=== PATIENT | female | born 1955 | race American Indian/Alaskan Native ===

== ENCOUNTER 2019-11-02 15:43 | Inpatient (IN) | payer MEDICAID ==
--- NOTE | 2019-11-02 18:41 | Emergency Department Report ---
Blank Doc - Documentation Documentation: 64-year-old female that presents with lower abdominal pain. This initial assessment/diagnostic orders/clinical plan/treatment(s) is/are subject to change based on patient's health status, clinical progression and re- assessment by fellow clinical providers in the ED. Further treatment and workup at subsequent clinical providers discretion. Patient/guardians urged not to elope from the ED as their condition may be serious if not clinically assessed and managed. Initial orders include: 1- Patient sent to [facility] for further evaluation and treatment 2- labs 3- UA
[2019-11-02 19:08] LABS: Basophils # (Auto) 0.1 K/mm3 (0.0-0.1); Basophils % (Auto) 1.1 % (0.0-1.8); Eosinophils # (Auto) 0.1 K/mm3 (0.0-0.4); Eosinophils % (Auto) 1.2 % (0.0-4.3); Hematocrit 35.4 % (30.3-42.9); Hemoglobin 11.5 gm/dl (10.1-14.3); Lymphocytes # (Auto) 1.4 K/mm3 (1.2-5.4); Lymphocytes % (Auto) 23.7 % (13.4-35.0); Mean Corpuscular HGB Conc 32 % (30-34); Mean Corpuscular Volume 87 fl (79-97); Monocytes # (Auto) 0.6 K/mm3 (0.0-0.8); Monocytes % (Auto) 10.4 % (0.0-7.3); Platelet Count 204 K/mm3 (140-440); Red Blood Count 4.05 M/mm3 (3.65-5.03); Red Cell Distribution Width 14.4 % (13.2-15.2)
[2019-11-02 19:35] LABS: Alanine Aminotransferase 23 units/L (7-56); Albumin 4.1 g/dL (3.9-5); BUN/Creatinine Ratio 17; Blood Urea Nitrogen 12 mg/dL (7-17); Calcium 9.4 mg/dL (8.4-10.2); Hemolysis Index 4
[2019-11-02] MEDS ORDERED: ONDANSETRON 4 MG/2 ML INJ IV ONE (21:55)
[2019-11-02] MEDS ORDERED: SODIUM CHLORIDE 0.9% 1000 ML 1,000 ML IV ONE (21:55)
[2019-11-02] MEDS ORDERED: DICYCLOMINE 20 MG TAB PO ONE (21:55)
[2019-11-02 23:31] LABS: Bilirubin,Urine NEG (Negative); Blood,Urine NEG (Negative); Color,Urine Yellow (Yellow); Protein,Urine <15 mg/dL mg/dL (Negative); Urobilinogen,Urine < 2.0 mg/dL (<2.0)
--- NOTE | 2019-11-02 23:54 | Cat Scan Report ---
CT OF THE ABDOMEN AND PELVIS WITH INTRAVENOUS CONTRAST INDICATION / CLINICAL INFORMATION: Diffuse lower abdominal pain. TECHNIQUE: The patient received 100 cc Omnipaque [address] scans at this location are performed using CT dose reduction for ALARA by means of automated exposure control. COMPARISON: None available. FINDINGS: ABDOMEN: There is a benign-appearing 6 cm cystic mass in the inferior spleen with thick peripheral wa ll calcification. The findings are likely related to old trauma. There is mild to moderate diffuse mark wel wall thickening involving the right and transverse colon. I see no evidence of pneumatosis, free air or obstruction. No acute vascular abnormality is seen. There are a couple of calcified granulomata in the right lobe of the liver. The gallbladder, bile piyush ts, pancreas, adrenal glands, and demonstrate no significant abnormality. No adenopathy is seen. The lung bases are unremarkable. PELVIS: The distal ureters and urinary bladder are normal. There is a small amount of free fluid in t he cul-de-sac, greater on the right. The uterus and adnexal regions are normal. A normal appendix is present and there is no evidence of diverticulitis. I do not identify a hernia. No acute osseous abno rmality is seen. IMPRESSION: 1. Moderate colitis involving the right and transverse colon. 2. 6 cm benign-appearing peripherally calcified cyst in the spleen. Signer Name: Driss Kumar MD Signed: 11/02/2019 11:50 PM Workstation Name: [id number]
[2019-11-03] MEDS ORDERED: metroNIDAZOLE/NS 500 MG/100 ML 500 MG/100 ML BAG IV ONE (00:08)
[2019-11-03] MEDS ORDERED: ONDANSETRON 4 MG/2 ML INJ IV ONE (00:08)
[2019-11-03] MEDS ORDERED: MORPHINE 4 MG/1 ML INJ IV ONE (00:08)
--- NOTE | 2019-11-03 01:12 | Emergency Department Report ---
ED Abdominal Pain HPI - General Chief Complaint: Abdominal Pain Stated Complaint: STOMACH PAIN Time Seen by Provider: 11/02/19 18:40 Source: patient, EMS Mode of arrival: Ambulatory Limitations: No Limitations - History of Present Illness Initial Comments: Patient is a 64-year-old -Faro[place] female with history of hypertension who presents to the ED recombinant of acute onset persistent severe diffuse lower abdominal pain with nausea and diarrhea for the last 2 days, worse in the last 12. Patient denies dysuria, urinary frequency and urgency, hematuria, vaginal bleeding, vaginal discharge, dizziness, chest pain, shortness of breath, fever and chills. MD Complaint: abdominal pain, other (nausea and diarrhea) -: Sudden, days(s) (2) Location: LLQ, RLQ, suprapubic Radiation: LLQ, RLQ, suprapubic Migration to: no migration Severity: severe Severity scale (0 -10): 8 Quality: cramping, aching, sharp Consistency: constant Improves With: nothing Worsens With: nothing Associated Symptoms: denies other symptoms, nausea, diarrhea, anorexia. denies: vomiting, fever, chills, constipation, hematemesis, hematochezia, melena - Related Data Allergies Allergy/AdvReac Type Severity Reaction Status Date / Time aspirin Allergy Anaphylaxis Verified 11/02/19 15:47 ED Review of Systems ROS: Stated complaint: STOMACH PAIN Other details as noted in HPI Constitutional: denies: chills, fever Eyes: denies: eye pain, eye discharge, vision change ENT: denies: ear pain, throat pain Respiratory: denies: cough, shortness of breath, wheezing Cardiovascular: denies: chest pain, palpitations Endocrine: no symptoms reported Gastrointestinal: abdominal pain, nausea, diarrhea Genitourinary: denies: urgency, dysuria, discharge Musculoskeletal: denies: back pain, joint swelling, arthralgia Skin: denies: rash, lesions Neurological: denies: headache, weakness, paresthesias Psychiatric: denies: anxiety, depression Hematological/Lymphatic: denies: easy bleeding, easy bruising ED Past Medical Hx - Past Medical History Previous Medical History?: Yes Hx Hypertension: Yes Hx Asthma: Yes - Surgical History Past Surgical History?: No - Social History Smoking Status: Never Smoker Substance Use Type: None ED Physical Exam - General Limitations: No Limitations General appearance: alert, in no apparent distress - Head Head exam: Present: atraumatic, normocephalic, normal inspection - Eye Eye exam: Present: normal appearance, PERRL, EOMI Pupils: Present: normal accommodation - ENT ENT exam: Present: normal exam, normal orophraynx, mucous membranes moist, TM's normal bilaterally, normal external ear exam - Neck Neck exam: Present: normal inspection, full ROM - Respiratory Respiratory exam: Present: normal lung sounds bilaterally. Absent: respiratory distress, wheezes, rales, stridor, chest wall tenderness, accessory muscle use, decreased breath sounds, prolonged expiratory - Cardiovascular Cardiovascular Exam: Present: normal rhythm, tachycardia, normal heart sounds. Absent: systolic murmur, diastolic murmur, rubs, gallop - GI/Abdominal GI/Abdominal exam: Present: soft, tenderness (diffuse lower abdominal tenderness to palpation, regarding), guarding, normal bowel sounds. Absent: rebound, hyperactive bowel sounds - Extremities Exam Extremities exam: Present: normal inspection, full ROM, normal capillary refill - Back Exam Back exam: Present: normal inspection, full ROM. Absent: tenderness, CVA tenderness (R), CVA tenderness (L), muscle spasm, vertebral tenderness - Neurological Exam Neurological exam: Present: alert, oriented X3, CN II-XII intact, normal gait, reflexes normal - Psychiatric Psychiatric exam: Present: normal affect, normal mood - Skin Skin exam: Present: warm, dry, intact, normal color. Absent: rash ED Course Vital Signs 11/02/19 11/03/19 18:44 00:24 Temperature 98.4 F Pulse Rate 107 H Respiratory 18 18 Rate Blood Pressure 185/93 O2 Sat by Pulse 100 Oximetry ED Medical Decision Making - Lab Data Result diagrams: 11/02/19 18:53 11/02/19 18:53 - Radiology Data Radiology results: report reviewed, image reviewed Findings [facility] [address] [place] [address] Cat Scan Report Signed Patient: ANGELIA MARTINEZ MR#: [id number] : 1955 Acct:[id number] Age/Sex: 64 / F ADM Date: 11/02/19 Loc: ED Attending Dr: Ordering Physician: NUNU KOENIG Date of Service: 11/02/19 Procedure(s): CT abdomen pelvis w con Accession Number(s): [id number] cc: NUNU KOENIG CT OF THE ABDOMEN AND PELVIS WITH INTRAVENOUS CONTRAST INDICATION / CLINICAL INFORMATION: Diffuse lower abdominal pain. TECHNIQUE: The patient received 100 cc Omnipaque [address] scans at this location are performed using CT dose reduction for ALARA by means of automated exposure control. COMPARISON: None available. FINDINGS: ABDOMEN: There is a benign-appearing 6 cm cystic mass in the inferior spleen with thick peripheral wall calcification. The findings are likely related to old trauma. There is mild to moderate diffuse bowel wall thickening involving the right and transverse colon. I see no evidence of pneumatosis, free air or obstruction. No acute vascular abnormality is seen. There are a couple of calcified granulomata in the right lobe of the liver. The gallbladder, bile ducts, pancreas, adrenal glands, and demonstrate no significant abnormality. No adenopathy is seen. The lung bases are unremarkable. PELVIS: The distal ureters and urinary bladder are normal. There is a small amount of free fluid in the cul-de-sac, greater on the right. The uterus and adnexal regions are normal. A normal appendix is present and there is no evidence of diverticulitis. I do not identify a hernia. No acute osseous abnormality is seen. IMPRESSION: 1. Moderate colitis involving the right and transverse colon. 2. 6 cm benign-appearing peripherally calcified cyst in the spleen. Signer Name: Driss Kumar MD Signed: 11/02/2019 11:50 PM Workstation Name: [id number] Transcribed By: RT Dictated By: Driss Kumar MD Electronically Authenticated By: Driss Kumar MD Signed Date/Time: 11/02/19 5290 - Medical Decision Making This is a 64-year-old female who presented to the ED with diffuse lower abdominal pain with nausea and diarrhea. In the ED, patient is alert and oriented 3 and is not in distress but appears to be in pain. Patient is however tachycardic but afebrile in triage. Lab test results were reviewed and all nonactionable except for lipase level that is slightly elevated to 65. Urinalysis is nonactionable. Abdomen pelvis CT scan with contrast shows Moderate colitis involving the right and transverse colon. There is also a 6 cm benign-appearing peripherally calcified cyst in the spleen. The rest of imaging report is unremarkable. Patient was treated for pain in the ED, also received normal saline 1 L IV bolus and Flagyl 5 mg IV 1. Patient also received Levaquin 500 milligrams IV 1. Patient's case was discussed with the ED attending physician Dr. Otis Granados who agreed with the plan of care to admit the patient to the hospital for further antibiotic treatment. The patient's case was also discussed with hospitalist physician pricing consultant Dr. Espinosa who admitted patient to the hospital. - Differential Diagnosis UTI; Colitis; Diverticulitis; Cystitis; Fibroids; appendicitis Critical care attestation.: If time is entered above; I have spent that time in minutes in the direct care of this critically ill patient, excluding procedure time. ED Disposition Clinical Impression: Abdominal pain in female patient, Acute colitis Disposition: OP ADMIT IP TO THIS HOSP Is pt being admited?: Yes Does the pt Need Aspirin: No Condition: Stable Instructions: Abdominal Pain (ED) Referrals: GIN JANSEN MD [Primary Care Provider] - 3-5 Days Time of Disposition: 01:13 Print Language: LIBERIAN
--- NOTE | 2019-11-03 01:21 | History and Physical Report ---
History of Present Illness History of present illness: 64-year-old woman with a history of chronic pain, asthma comes emergency room with complaints of abdominal pain located in the left lower abdomen. He describes it as pressure, started today, intensity 6/10, radiating to the back, relieved with pain medication given in the emergency room. Admits to nausea, chills, no diarrhea Review Of Systems: Constitutional: no weight loss, chills, fever Ears, eyes, nose, mouth and throat: no nasal congestion, no nasal discharge, no sinus pressure, blurry vision, diplopia Neck: No neck pain or rigidity. Cardiovascular: No palpitations, chest pain Respiratory: No cough, shortness of breath Gastrointestinal: No hematochezia Genitourinary : no dysuria, frequency , hematuria Musculoskeletal: no muscle ache , joint pain Integumentary: no rash, no pruritis Neurological: no parathesias, focal weakness Endocrine: no cold or heat intolerance, no polyuria or polydipsia Hematologic/Lymphatic: no easy bruising, no easy bleeding, no gland swelling Allergic/Immunologic: no urticaria, no angioedema. PAST MEDICAL HISTORY: Chronic pain, asthma PAST SURGICAL HISTORY:None SOCIAL HISTORY: No alcohol, no tobacco or drugs FAMILY HISTORY: hypertension Medications and Allergies Allergies Allergy/AdvReac Type Severity Reaction Status Date / Time aspirin Allergy Anaphylaxis Verified 11/02/19 15:47 Home Medications Medication Instructions Recorded Confirmed Last Taken Type Budesonide/Formoterol Fumarate 10.2 gm IH BID 11/03/19 11/03/19 Unknown History [Symbicort 160-4.5 Mcg Inhaler] Furosemide [Lasix TAB] 40 mg PO QDAY 11/03/19 11/03/19 Unknown History Gabapentin [Neurontin] 300 mg PO Q8HR 11/03/19 11/03/19 Unknown History Ketotifen Fumarate [Alaway] 10 ml OP BID 11/03/19 11/03/19 Unknown History Nortriptyline [Pamelor] 25 mg PO QHS 11/03/19 11/03/19 Unknown History Verapamil ER [Calan Sr] 240 mg PO QDAY 11/03/19 11/03/19 Unknown History lisinopriL [Zestril TAB] 40 mg PO QDAY 11/03/19 11/03/19 Unknown History risperiDONE [RisperDAL] 2 mg PO QHS 11/03/19 11/03/19 Unknown History Exam - Physical Exam Narrative exam: Gen. appearance: Patient lying in bed, no apparent distress HEENT: Normocephalic, atraumatic, pupils equally round and reactive to light, extraocular movement intact, and no sclericterus,. No JVD or thyromegaly or nodule,neck supple, no carotid bruit ,mucous membranes moist, no exudate or erythema Heart: S1, S2, regular rate and rhythm Lungs: Clear to auscultation bilaterally, breathing comfortable Abdomen: Positive bowel sounds, tender in left lower quadrant, nondistended, no organomegaly Extremity: No edema, cyanosis, clubbing Skin: No rash, nodules, warm, dry Neuro: Oriented 3, cranial nerves II-12 intact, speech is fluent, motor and sensory intact - Constitutional Vitals: Temp Pulse Resp BP Pulse Ox 98.4 F 107 H 18 185/93 100 11/02/19 18:44 11/02/19 18:44 11/03/19 00:24 11/02/19 18:44 11/02/19 18:44 Results - Labs CBC & Chem 7: 11/02/19 18:53 11/02/19 18:53 Labs: Abnormal lab results 11/02/19 11/02/19 Range/Units 18:53 22:00 [place] % (Auto) 10.4 H (0.0-7.3) % Lipase 65 H (13-60) units/L - Imaging and Cardiology CT scan - abdomen: report reviewed CT scan - pelvis: report reviewed Assessment and Plan Assessment Acute colitis Start IV fluid, bowel rest, Levaquin and Flagyl Consult GI, IV morphine Asthma, stable DVT prophylaxis
[2019-11-03] MEDS ORDERED: ACETAMINOPHEN 325 MG TAB PO PRN (01:26)
[2019-11-03] MEDS ORDERED: MORPHINE 2 MG/1 ML INJ IV PRN (01:26)
[2019-11-03] MEDS ORDERED: ONDANSETRON 4 MG/2 ML INJ IV PRN (01:26)
[2019-11-03] MEDS: metroNIDAZOLE 500 MG TAB PO SCH ×3 (05:29→21:53)
[2019-11-03] MEDS: SODIUM CHLORIDE 0.45% 1000 ML 1,000 ML IV SCH ×2 (05:30→16:57)
--- NOTE | 2019-11-03 11:02 | Gastroenterology Consultation ---
<DERIC BORJA - Last Filed: 11/03/19 11:04> History of Present Illness - Reason for Consult Consult date: 11/03/19 colitis Requesting physician: JOSY ROJO - History of Present Illness Patient is a 64 y/o female with PMH of HTN, asthma, and chronic pain who presented to ED with c/o acute onset diffuse lower abdominal pain with associ ated nausea and diarrhea. Upon admission, abd CT showed colitis to which GI has been consulted. This morning patient was resting in bed w/o acute distress. Reports continue mild lower abdominal pain and diarrhea x 2 episodes this am with non-bloody liquid stool. Denies fever, CP, SOB, vomiting, wt loss, signs of bleeding, or constipation. Admits to recently completing antibiotics for sinus infection and eating lunch meat from [employer] prior to onset of symptoms. No recent travel or ill contacts. No hx of IBD. No Fhx of colon CA. No prior colonoscopy. Past History Past Medical History: other (see HPI) Past Surgical History: No surgical history Social history: denies: smoking, alcohol abuse Family history: hypertension Medications and Allergies Allergies Allergy/AdvReac Type Severity Reaction Status Date / Time aspirin Allergy Anaphylaxis Verified 11/02/19 15:47 Home Medications Medication Instructions Recorded Confirmed Last Taken Type Budesonide/Formoterol Fumarate 10.2 gm IH BID 11/03/19 11/03/19 Unknown History [Symbicort 160-4.5 Mcg Inhaler] Furosemide [Lasix TAB] 40 mg PO QDAY 11/03/19 11/03/19 Unknown History Gabapentin [Neurontin] 300 mg PO Q8HR 11/03/19 11/03/19 Unknown History Ketotifen Fumarate [Alaway] 10 ml OP BID 11/03/19 11/03/19 Unknown History Nortriptyline [Pamelor] 25 mg PO QHS 11/03/19 11/03/19 Unknown History Verapamil ER [Calan Sr] 240 mg PO QDAY 11/03/19 11/03/19 Unknown History lisinopriL [Zestril TAB] 40 mg PO QDAY 11/03/19 11/03/19 Unknown History risperiDONE [RisperDAL] 2 mg PO QHS 11/03/19 11/03/19 Unknown History Active Meds: Active Medications Acetaminophen (Tylenol) 650 mg PO Q4H PRN PRN Reason: Pain MILD(1-3)/Fever >100.5/CARBAJAL Sodium Chloride (Nacl 0.45% 1000 Ml) 1,000 mls @ 100 mls/hr IV DIRECT [facility] Last Admin: 11/03/19 05:30 Dose: 100 mls/hr Documented by: Levofloxacin/Dextrose (Levaquin 500mg/100ml) 500 mg in 100 mls @ 100 mls/hr IV Q24HR [facility]; Protocol Last Admin: 11/03/19 10:18 Dose: 100 mls/hr Documented by: Metronidazole (Flagyl) 500 mg PO Q8H [facility]; Protocol Last Admin: 11/03/19 05:29 Dose: 500 mg Documented by: Morphine Sulfate (Morphine) 2 mg IV Q4H PRN PRN Reason: Pain, Moderate (4-6) Ondansetron HCl (Zofran) 4 mg IV Q8H PRN PRN Reason: Nausea And Vomiting Sodium Chloride (Sodium Chloride Flush Syringe 10 Ml) 10 ml IV BID [facility] Last Admin: 11/03/19 10:19 Dose: Not Given Documented by: Sodium Chloride (Sodium Chloride Flush Syringe 10 Ml) 10 ml IV PRN PRN PRN Reason: LINE FLUSH medications reviewed/updated as required Review of Systems - Review of Systems All systems: negative Gastrointestinal: abdominal pain (diffuse lower abd pain), diarrhea Exam - Constitutional Vital Signs: Temp Pulse Resp BP Pulse Ox 98.4 F 81 18 135/67 98 11/02/19 18:44 11/03/19 02:40 11/03/19 03:32 11/03/19 03:32 11/03/19 04:46 General appearance: no acute distress - EENT Eyes: PERRL, EOM intact ENT: hearing intact - Respiratory Respiratory effort: normal - Cardiovascular Rhythm: regular - Gastrointestinal General gastrointestinal: Present: soft, tender (slight TTP in LLQ), non- distended, normal bowel sounds - Integumentary Integumentary: Present: warm, dry - Neurologic Neurological: alert and oriented x3 - Labs CBC & Chem 7: 11/02/19 18:53 11/02/19 18:53 Lab Results: Laboratory Results - last 24 hr 11/02/19 11/02/19 11/02/19 18:53 18:53 22:00 WBC 5.9 RBC 4.05 Hgb 11.5 Hct 35.4 MCV 87 MCH 28 MCHC 32 RDW 14.4 Plt Count 204 Lymph % (Auto) 23.7 [place] % (Auto) 10.4 H Eos % (Auto) 1.2 Baso % (Auto) 1.1 Lymph # 1.4 [place] # 0.6 Eos # 0.1 Baso # 0.1 Seg Neutrophils % 63.6 Seg Neutrophils # 3.7 Sodium 144 Potassium 3.7 Chloride 104.0 Carbon Dioxide 25 Anion Gap 19 BUN 12 Creatinine 0.7 Estimated GFR > 60 BUN/Creatinine Ratio 17 Glucose 89 Calcium 9.4 Total Bilirubin 0.40 AST 24 ALT 23 Alkaline Phosphatase 87 Total Protein 7.3 Albumin 4.1 Albumin/Globulin Ratio 1.3 Lipase 65 H Urine Color Urine Turbidity Urine pH Ur Specific [place] Urine Protein Urine Glucose (UA) Urine Ketones Urine Blood Urine Nitrite Urine Bilirubin Urine Urobilinogen Ur Leukocyte Esterase Urine WBC (Auto) Urine RBC (Auto) 11/02/19 22:38 WBC RBC Hgb Hct MCV MCH MCHC RDW Plt Count Lymph % (Auto) [place] % (Auto) Eos % (Auto) Baso % (Auto) Lymph # [place] # Eos # Baso # Seg Neutrophils % Seg Neutrophils # Sodium Potassium Chloride Carbon Dioxide Anion Gap BUN Creatinine Estimated GFR BUN/Creatinine Ratio Glucose Calcium Total Bilirubin AST ALT Alkaline Phosphatase Total Protein Albumin Albumin/Globulin Ratio Lipase Urine Color Yellow Urine Turbidity Clear Urine pH 7.0 Ur Specific [place] 1.006 Urine Protein <15 mg/dl Urine Glucose (UA) Neg Urine Ketones Neg Urine Blood Neg Urine Nitrite Neg Urine Bilirubin Neg Urine Urobilinogen < 2.0 Ur Leukocyte Esterase Tr Urine WBC (Auto) 1.0 Urine RBC (Auto) 2.0 Assessment and Plan 1.colitis -afebrile -WBC and H/H WNL -abd CT showed moderate colitis involving the right and transverse colon -etiology-possible infectious vs other -no plan for scope at this time, consider colonoscopy at outpatient once acute process has resolved -will order stool studies -continue empiric antibiotics (change to vanco if stool C-diff positive) -start on liquids-advance diet as tolerated -continue supportive care -will follow <BIJAN BRITO - Last Filed: 11/03/19 15:56> Medications and Allergies Active Meds: Active Medications Acetaminophen (Tylenol) 650 mg PO Q4H PRN PRN Reason: Pain MILD(1-3)/Fever >100.5/CARBAJAL Sodium Chloride (Nacl 0.45% 1000 Ml) 1,000 mls @ 100 mls/hr IV DIRECT [facility] Last Admin: 11/03/19 05:30 Dose: 100 mls/hr Documented by: Levofloxacin/Dextrose (Levaquin 500mg/100ml) 500 mg in 100 mls @ 100 mls/hr IV Q24HR [facility]; Protocol Last Admin: 11/03/19 10:18 Dose: 100 mls/hr Documented by: Metronidazole (Flagyl) 500 mg PO Q8H [facility]; Protocol Last Admin: 11/03/19 13:22 Dose: 500 mg Documented by: Morphine Sulfate (Morphine) 2 mg IV Q4H PRN PRN Reason: Pain, Moderate (4-6) Ondansetron HCl (Zofran) 4 mg IV Q8H PRN PRN Reason: Nausea And Vomiting Sodium Chloride (Sodium Chloride Flush Syringe 10 Ml) 10 ml IV BID [facility] Last Admin: 11/03/19 10:19 Dose: Not Given Documented by: Sodium Chloride (Sodium Chloride Flush Syringe 10 Ml) 10 ml IV PRN PRN PRN Reason: LINE FLUSH Exam - Constitutional Vital Signs: Temp Pulse Resp BP Pulse Ox 98.5 F 97 H 18 151/71 98 11/03/19 11:52 11/03/19 11:52 11/03/19 11:52 11/03/19 11:52 11/03/19 11:52 - Labs CBC & Chem 7: 11/02/19 18:53 11/02/19 18:53 Lab Results: Laboratory Results - last 24 hr 11/02/19 11/02/19 11/02/19 18:53 18:53 22:00 WBC 5.9 RBC 4.05 Hgb 11.5 Hct 35.4 MCV 87 MCH 28 MCHC 32 RDW 14.4 Plt Count 204 Lymph % (Auto) 23.7 [place] % (Auto) 10.4 H Eos % (Auto) 1.2 Baso % (Auto) 1.1 Lymph # 1.4 [place] # 0.6 Eos # 0.1 Baso # 0.1 Seg Neutrophils % 63.6 Seg Neutrophils # 3.7 Sodium 144 Potassium 3.7 Chloride 104.0 Carbon Dioxide 25 Anion Gap 19 BUN 12 Creatinine 0.7 Estimated GFR > 60 BUN/Creatinine Ratio 17 Glucose 89 Calcium 9.4 Total Bilirubin 0.40 AST 24 ALT 23 Alkaline Phosphatase 87 Total Protein 7.3 Albumin 4.1 Albumin/Globulin Ratio 1.3 Lipase 65 H Urine Color Urine Turbidity Urine pH Ur Specific [place] Urine Protein Urine Glucose (UA) Urine Ketones Urine Blood Urine Nitrite Urine Bilirubin Urine Urobilinogen Ur Leukocyte Esterase Urine WBC (Auto) Urine RBC (Auto) 11/02/19 22:38 WBC RBC Hgb Hct MCV MCH MCHC RDW Plt Count Lymph % (Auto) [place] % (Auto) Eos % (Auto) Baso % (Auto) Lymph # [place] # Eos # Baso # Seg Neutrophils % Seg Neutrophils # Sodium Potassium Chloride Carbon Dioxide Anion Gap BUN Creatinine Estimated GFR BUN/Creatinine Ratio Glucose Calcium Total Bilirubin AST ALT Alkaline Phosphatase Total Protein Albumin Albumin/Globulin Ratio Lipase Urine Color Yellow Urine Turbidity Clear Urine pH 7.0 Ur Specific [place] 1.006 Urine Protein <15 mg/dl Urine Glucose (UA) Neg Urine Ketones Neg Urine Blood Neg Urine Nitrite Neg Urine Bilirubin Neg Urine Urobilinogen < 2.0 Ur Leukocyte Esterase Tr Urine WBC (Auto) 1.0 Urine RBC (Auto) 2.0 Assessment and Plan Pt seen and examined. Pt had what appears to be infectious colitis, and seems to be improving. Plan as noted.
--- NOTE | 2019-11-03 15:56 | Event Note ---
Date: 11/03/19 Patient was admitted this morning with acute colitis On IV antibiotics GI evaluation noted and appreciated Medical records reviewed Agree with the current management Advance diet as tolerated Possible discharge in 1-2 days if stable
--- NOTE | 2019-11-03 19:54 | Progress Note ---
Hospitalist Physical - Constitutional Vitals: Temp Pulse Resp BP Pulse Ox 98.6 F 85 18 135/71 97 11/03/19 16:39 11/03/19 16:39 11/03/19 16:39 11/03/19 16:39 11/03/19 16:39 Results - Labs CBC & Chem 7: 11/02/19 18:53 11/02/19 18:53 Labs: Laboratory Last Values WBC 5.9 K/mm3 (4.5-11.0) 11/02/19 18:53 RBC 4.05 M/mm3 (3.65-5.03) 11/02/19 18:53 Hgb 11.5 gm/dl (10.1-14.3) 11/02/19 18:53 Hct 35.4 % (30.3-42.9) 11/02/19 18:53 MCV 87 fl (79-97) 11/02/19 18:53 MCH 28 pg (28-32) 11/02/19 18:53 MCHC 32 % (30-34) 11/02/19 18:53 RDW 14.4 % (13.2-15.2) 11/02/19 18:53 Plt Count 204 K/mm3 (140-440) 11/02/19 18:53 Lymph % (Auto) 23.7 % (13.4-35.0) 11/02/19 18:53 [place] % (Auto) 10.4 % (0.0-7.3) H 11/02/19 18:53 Eos % (Auto) 1.2 % (0.0-4.3) 11/02/19 18:53 Baso % (Auto) 1.1 % (0.0-1.8) 11/02/19 18:53 Lymph # 1.4 K/mm3 (1.2-5.4) 11/02/19 18:53 [place] # 0.6 K/mm3 (0.0-0.8) 11/02/19 18:53 Eos # 0.1 K/mm3 (0.0-0.4) 11/02/19 18:53 Baso # 0.1 K/mm3 (0.0-0.1) 11/02/19 18:53 Seg Neutrophils % 63.6 % (40.0-70.0) 11/02/19 18:53 Seg Neutrophils # 3.7 K/mm3 (1.8-7.7) 11/02/19 18:53 Sodium 144 mmol/L (137-145) 11/02/19 18:53 Potassium 3.7 mmol/L (3.6-5.0) 11/02/19 18:53 Chloride 104.0 mmol/L (98-107) 11/02/19 18:53 Carbon Dioxide 25 mmol/L (22-30) 11/02/19 18:53 Anion Gap 19 mmol/L 11/02/19 18:53 BUN 12 mg/dL (7-17) 11/02/19 18:53 Creatinine 0.7 mg/dL (0.7-1.2) 11/02/19 18:53 Estimated GFR > 60 ml/min 11/02/19 18:53 BUN/Creatinine Ratio 17 % 11/02/19 18:53 Glucose 89 mg/dL (65-100) 11/02/19 18:53 Calcium 9.4 mg/dL (8.4-10.2) 11/02/19 18:53 Total Bilirubin 0.40 mg/dL (0.1-1.2) 11/02/19 18:53 AST 24 units/L (5-40) 11/02/19 18:53 ALT 23 units/L (7-56) 11/02/19 18:53 Alkaline Phosphatase 87 units/L (35-129) 11/02/19 18:53 Total Protein 7.3 g/dL (6.3-8.2) 11/02/19 18:53 Albumin 4.1 g/dL (3.9-5) 11/02/19 18:53 Albumin/Globulin Ratio 1.3 % 11/02/19 18:53 Lipase 65 units/L (13-60) H 11/02/19 22:00 Urine Color Yellow (Yellow) 11/02/19 22:38 Urine Turbidity Clear (Clear) 11/02/19 22:38 Urine pH 7.0 (5.0-7.0) 11/02/19 22:38 Ur Specific [place] 1.006 (1.003-1.030) 11/02/19 22:38 Urine Protein <15 mg/dl mg/dL (Negative) 11/02/19 22:38 Urine Glucose (UA) Neg mg/dL (Negative) 11/02/19 22:38 Urine Ketones Neg mg/dL (Negative) 11/02/19 22:38 Urine Blood Neg (Negative) 11/02/19 22:38 Urine Nitrite Neg (Negative) 11/02/19 22:38 Urine Bilirubin Neg (Negative) 11/02/19 22:38 Urine Urobilinogen < 2.0 mg/dL (<2.0) 11/02/19 22:38 Ur Leukocyte Esterase Tr (Negative) 11/02/19 22:38 Urine WBC (Auto) 1.0 /HPF (0.0-6.0) 11/02/19 22:38 Urine RBC (Auto) 2.0 /HPF (0.0-6.0) 11/02/19 22:38 Active Medications - Current Medications Current Medications: Generic Name Dose Route Start Last Admin Trade Name Freq PRN Reason Stop Dose Admin Acetaminophen 650 mg 11/03/19 01:26 Tylenol PO Q4H PRN Pain MILD(1-3)/Fever >100.5/CARBAJAL Sodium Chloride 1,000 mls @ 100 mls/hr 11/03/19 02:00 11/03/19 16:57 Nacl 0.45% 1000 Ml IV 100 mls/hr DIRECT HANS Administration Levofloxacin/Dextrose 500 mg in 100 mls @ 100 mls/hr 11/03/19 10:00 11/03/19 10:18 Levaquin 500mg/100ml IV 100 mls/hr Q24HR HANS Administration Protocol Metronidazole 500 mg 11/03/19 06:00 11/03/19 13:22 Flagyl PO 500 mg Q8H HANS Administration Protocol Morphine Sulfate 2 mg 11/03/19 01:26 Morphine IV Q4H PRN Pain, Moderate (4-6) Ondansetron HCl 4 mg 11/03/19 01:26 Zofran IV Q8H PRN Nausea And Vomiting Sodium Chloride 10 ml 11/03/19 10:00 11/03/19 10:19 Sodium Chloride Flush Syringe 10 Ml IV Not Given BID HANS Sodium Chloride 10 ml 11/03/19 01:26 Sodium Chloride Flush Syringe 10 Ml IV PRN PRN LINE FLUSH
[2019-11-04] MEDS: SODIUM CHLORIDE 0.45% 1000 ML 1,000 ML IV SCH (03:13)
[2019-11-04] MEDS: metroNIDAZOLE 500 MG TAB PO SCH ×2 (05:30→13:22)
[2019-11-04 06:45] LABS: BUN/Creatinine Ratio 10; Blood Urea Nitrogen 6 mg/dL (7-17); Calcium 8.6 mg/dL (8.4-10.2); Hemolysis Index 0
--- NOTE | 2019-11-04 11:41 | Gastroenterology Progress Note ---
Assessment and Plan 1.colitis -afebrile -WBC and H/H WNL -abd CT showed moderate colitis involving the right and transverse colon -etiology-possible infectious vs other -clinically, patient is stable. Reports feeling better with diarrhea improved and stool forming. Denies abd pain, N/V, or signs of bleeding. -no plan for scope at this time, recommend outpatient colonoscopy in 4-6 weeks once acute process has resolved -stool studies pending -continue empiric antibiotics x total of 7 days -diet as tolerated -continue supportive care -patient okay to be d/c per GI standpoint with f/u in clinic in ~2-3 weeks for schedule colonoscopy as above -will sign off, please call if needed Subjective Date of service: 11/04/19 Principal diagnosis: colitis Interval history: Patient sitting up in bed w/o acute distress. Reports feeling better today with diarrhea improved and stool being coming formed. Denies abd pain or N/V. Tolerating diet. Objective - Constitutional Vitals: Temp Pulse Resp BP Pulse Ox 97.3 F L 96 H 20 113/51 98 11/04/19 04:04 11/04/19 04:04 11/04/19 04:04 11/04/19 04:04 11/04/19 04:04 General appearance: no acute distress - EENT Eyes: PERRL, EOM intact ENT: hearing intact - Respiratory Respiratory: bilateral: CTA - Cardiovascular Rhythm: regular - Gastrointestinal General gastrointestinal: Present: soft, non-tender, non-distended, normal bowel sounds - Neurologic Neurological: alert and oriented x3 - Labs CBC & Chem 7: 11/02/19 18:53 11/04/19 06:15 Labs: Laboratory Results - last 24 hr 11/04/19 06:15 Sodium 142 Potassium 3.6 Chloride 107.8 H Carbon Dioxide 25 Anion Gap 13 BUN 6 L Creatinine 0.6 L Estimated GFR > 60 BUN/Creatinine Ratio 10 Glucose 112 H Calcium 8.6
[2019-11-04] MEDS ORDERED: FUROSEMIDE 40 MG/4 ML INJ IV NR (12:00)
[2019-11-04] MEDS ORDERED: FUROSEMIDE 40 MG/4 ML INJ IV ONE (12:00)
[2019-11-04 12:09] VITALS: BP 145/74
--- NOTE | 2019-11-04 13:12 | Discharge Summary ---
Providers - Providers Date of Admission: 11/03/19 01:15 Date of discharge: 11/04/19 Attending physician: BELKIS SANCHEZ 11/03/19 01:26 Consult to Physician [CONS] Routine Comment: Consulting Provider: DELFINO CARREON Physician Instructions: Reason For Exam: colitis [facility] Condition: Stable Disposition: - TO HOME OR SELFCARE Time spent for discharge: 32 min Core Measure Documentation - Palliative Care Palliative Care/ Comfort Measures: Not Applicable - Core Measures Any of the following diagnoses?: none Exam - Constitutional Vitals: Temp Pulse Resp BP Pulse Ox 98.3 F 78 16 145/74 100 11/04/19 11:55 11/04/19 11:55 11/04/19 11:55 11/04/19 11:55 11/04/19 11:55 General appearance: Present: no acute distress, well-nourished - EENT Eyes: Present: PERRL, EOM intact - Neck Neck: Present: supple, normal ROM - Respiratory Respiratory effort: normal Respiratory: bilateral: diminished, negative: rales, rhonchi, wheezing - Cardiovascular Rhythm: regular Heart Sounds: Present: S1 & S2 - Extremities Extremities: no ischemia, No edema - Abdominal General gastrointestinal: Present: soft, non-tender, non-distended, normal bowel sounds - Integumentary Integumentary: Present: clear, warm - Musculoskeletal Musculoskeletal: strength equal bilaterally - Psychiatric Psychiatric: appropriate mood/affect, cooperative - Neurologic Neurologic: CNII-XII intact, moves all extremities Plan Activity: advance as tolerated Diet: advance as tolerated Additional Instructions: Advance diet as tolerated. If you have severe abdominal pain nausea vomiting, contact M.D. or go to emergency room. Stool studies are pending, check the reports with GI on follow-up visit Follow up with: GIN JANSEN MD [Primary Care Provider] - 3-5 Days BIJAN BRITO MD [Staff Physician] - 14 Days Prescriptions: metroNIDAZOLE [Flagyl TAB] 500 mg PO Q8H #18 tablet
[2019-11-05] MEDS ORDERED: FUROSEMIDE 40 MG TAB PO SCH (10:00)
== END 2019-11-04 19:07 | disposition home or self-care (01) | DRG 392 ==
LOC: ED 15:43 → 3A 11-03 01:15
PROVIDERS: ADMIT Internal Medicine; ATTEND Internal Medicine
DX: K52.9 Noninfective gastroenteritis and colitis, unspecified (principal); I10 Essential (primary) hypertension; J45.909 Unspecified asthma, uncomplicated; G89.29 Other chronic pain
CPT/HCPCS: 36415; 74177; 80048; 80053; 81001; 83690; 85007; 85025; 87040; 87045; 87086; 87493; G0378; J1940; J1956; J2270; J2405; J7030; Q9967

== ENCOUNTER 2019-11-07 22:25 | Emergency (ER) | payer MEDICAID ==
[2019-11-07] MEDS ORDERED: metroNIDAZOLE 500 MG TAB PO SCH (23:45)
--- NOTE | 2019-11-07 23:55 | Emergency Department Report ---
ED General Adult HPI - General Chief complaint: Medical Clearance Stated complaint: MEDICAL CLEARANCE Time Seen by Provider: 11/07/19 22:55 Source: patient, RN notes reviewed, old records reviewed Mode of arrival: Ambulatory Limitations: Other (patient is a poor historian.) - History of Present Illness Initial comments: This is a 64-year-old female. This patient is not known to this provider previously. The patient has a history of hypertension and colitis, and was recently admitted to this hospital for colitis. She was seen in consultation with gastroenterology, clinically improved and discharged. It is documented that when she was discharged, she was alert and oriented 3, and clinically sober. During her recent hospitalization, she was s een with case management, she is apparently homeless, and the patient declines to list any next of kin. The patient was discharged to a local jail. The patient has Medicaid insurance and did not want to listen anyone as her next of kin contacts. The patient presents to the ER stating that she was never taken to her jail. She has chronic back pain. She came to the ER today basically because he has no place to go. The patient also insists that she is 8 months . I explained to the patient that she had blood work and CAT scan recently which indicated that she is indeed not . Nevertheless, the patient insist that she is . She also asked me why am asking her such silly questions. The patient is not accompanied by friends or family at this time. The patient is asking to go to sleep at this time. -: unknown - Related Data Home Medications Medication Instructions Recorded Confirmed Last Taken Budesonide/Formoterol Fumarate 10.2 gm IH BID 11/03/19 11/03/19 Unknown [Symbicort 160-4.5 Mcg Inhaler] Furosemide [Lasix TAB] 40 mg PO QDAY 11/03/19 11/03/19 Unknown Gabapentin 300 mg PO Q8HR 11/03/19 11/03/19 Unknown Ketotifen Fumarate [[place]] 10 ml OP BID 11/03/19 11/03/19 Unknown Nortriptyline [Pamelor] 25 mg PO QHS 11/03/19 11/03/19 Unknown Verapamil ER [Calan SR] 240 mg PO QDAY 11/03/19 11/03/19 Unknown lisinopriL [Zestril TAB] 40 mg PO QDAY 11/03/19 11/03/19 Unknown risperiDONE [RisperDAL] 2 mg PO QHS 11/03/19 11/03/19 Unknown Previous Rx's Medication Instructions Recorded Last Taken Type Ondansetron [Zofran Odt] 4 mg PO Q8HR #21 tab.rapdis 11/04/19 Unknown Rx Pantoprazole [Protonix] 40 mg PO QDAY #14 tablet 11/04/19 Unknown Rx levoFLOXacin [Levaquin TAB] 500 mg PO QDAY #5 tablet 11/04/19 Unknown Rx metroNIDAZOLE [Flagyl TAB] 500 mg PO Q8H #18 tablet 11/04/19 Unknown Rx Allergies Allergy/AdvReac Type Severity Reaction Status Date / Time aspirin Allergy Anaphylaxis Verified 11/02/19 15:47 ED Review of Systems ROS: Stated complaint: MEDICAL CLEARANCE Other details as noted in HPI Constitutional: denies: fever Eyes: denies: eye discharge ENT: denies: congestion Respiratory: denies: wheezing Cardiovascular: denies: syncope Gastrointestinal: denies: abdominal pain Genitourinary: denies: dysuria Musculoskeletal: back pain (chronic) Neurological: confusion Psychiatric: denies: homicidal thoughts, suicidal thoughts ED Past Medical Hx - Past Medical History Hx Hypertension: Yes Hx Asthma: Yes - Social History Smoking Status: Former Smoker Substance Use Type: None - Medications Home Medications: Home Medications Medication Instructions Recorded Confirmed Last Taken Type Budesonide/Formoterol Fumarate 10.2 gm IH BID 11/03/19 11/03/19 Unknown History [Symbicort 160-4.5 Mcg Inhaler] Furosemide [Lasix TAB] 40 mg PO QDAY 11/03/19 11/03/19 Unknown History Gabapentin 300 mg PO Q8HR 11/03/19 11/03/19 Unknown History Ketotifen Fumarate [Alaway] 10 ml OP BID 11/03/19 11/03/19 Unknown History Nortriptyline [Pamelor] 25 mg PO QHS 11/03/19 11/03/19 Unknown History Verapamil ER [Calan SR] 240 mg PO QDAY 11/03/19 11/03/19 Unknown History lisinopriL [Zestril TAB] 40 mg PO QDAY 11/03/19 11/03/19 Unknown History risperiDONE [RisperDAL] 2 mg PO QHS 01/14/20 01/14/20 Unknown History Ondansetron [Zofran Odt] 4 mg PO Q8HR #21 tab.rapdis 11/04/19 Unknown Rx Pantoprazole [Protonix] 40 mg PO QDAY #14 tablet 11/04/19 Unknown Rx levoFLOXacin [Levaquin TAB] 500 mg PO QDAY #5 tablet 11/04/19 Unknown Rx metroNIDAZOLE [Flagyl TAB] 500 mg PO Q8H #18 tablet 11/04/19 Unknown Rx ED Physical Exam - General Limitations: No Limitations General appearance: alert, in no apparent distress, other (patient is alert to name, year, location.) - Head Head exam: Present: atraumatic, normocephalic - Eye Eye exam: Present: normal appearance, EOMI, other (visual acuity intact to finger counting and color perception at a close distance). Absent: nystagmus - ENT ENT exam: Present: normal exam, normal orophraynx, mucous membranes moist, normal external ear exam - Neck Neck exam: Present: normal inspection, full ROM. Absent: tenderness, meningismus - Respiratory Respiratory exam: Present: normal lung sounds bilaterally. Absent: respiratory distress - Cardiovascular Cardiovascular Exam: Present: regular rate, normal rhythm, normal heart sounds. Absent: bradycardia, tachycardia, irregular rhythm, systolic murmur, diastolic murmur, rubs, gallop - GI/Abdominal GI/Abdominal exam: Present: soft. Absent: distended, tenderness, guarding, rebound, rigid, pulsatile mass - Extremities Exam Extremities exam: Present: normal inspection, full ROM, pedal edema, other (2+ pulses noted in the bilateral upper and lower extremities. There is no long bony tenderness. The muscular compartments are soft. The pelvis is stable.). Absent: calf tenderness - Back Exam Back exam: Present: normal inspection. Absent: tenderness, CVA tenderness (R), CVA tenderness (L), paraspinal tenderness, vertebral tenderness - Neurological Exam Neurological exam: Present: alert, oriented X3, normal gait, other (there is no facial droop. The tongue is midline. The extraocular movements are intact bilaterally. Moving 4 extremities spontaneously. Sensation is intact to light touch in 4 extremities spontaneously. Age-appropriate mental status.). Absent: motor sensory deficit - Psychiatric Psychiatric exam: Absent: homicidal ideation, suicidal ideation - Skin Skin exam: Present: warm, dry, intact, normal color. Absent: rash ED Course Vital Signs 11/07/19 11/07/19 11/08/19 23:25 23:32 02:02 Temperature 97.4 F L Pulse Rate 101 H Respiratory 16 15 15 Rate Blood Pressure 138/71 Blood Pressure 126/44 [Left] O2 Sat by Pulse 99 99 99 Oximetry 11/08/19 10:21 Temperature Pulse Rate 97 H Respiratory Rate Blood Pressure 134/82 Blood Pressure [Left] O2 Sat by Pulse Oximetry ED Medical Decision Making - Lab Data Result diagrams: 11/08/19 01:09 11/08/19 01:09 Vital Signs 11/07/19 23:25 Pulse Rate 101 H Respiratory 16 Rate Blood Pressure 138/71 O2 Sat by Pulse 99 Oximetry Lab Results 11/08/19 11/08/19 11/08/19 Range/Units 00:30 01:09 01:09 WBC 5.8 (4.5-11.0) K/mm3 RBC 4.09 (3.65-5.03) M/mm3 Hgb 11.6 (10.1-14.3) gm/dl Hct 35.2 (30.3-42.9) % MCV 86 (79-97) fl MCH 29 (28-32) pg MCHC 33 (30-34) % RDW 14.7 (13.2-15.2) % Plt Count 226 (140-440) K/mm3 Sodium 142 (137-145) mmol/L Potassium 3.8 (3.6-5.0) mmol/L Chloride 101.7 (98-107) mmol/L Carbon Dioxide 29 (22-30) mmol/L Anion Gap 15 mmol/L BUN 10 (7-17) mg/dL Creatinine 0.7 (0.7-1.2) mg/dL Estimated GFR > 60 ml/min BUN/Creatinine Ratio 14 % Glucose 99 (65-100) mg/dL Calcium 9.2 (8.4-10.2) mg/dL Magnesium 2.00 (1.7-2.3) mg/dL Total Bilirubin 0.40 (0.1-1.2) mg/dL AST 23 (5-40) units/L ALT 20 (7-56) units/L Alkaline Phosphatase 95 (35-129) units/L Total Creatine Kinase 124 (30-135) units/L Total Protein 6.9 (6.3-8.2) g/dL Albumin 4.0 (3.9-5) g/dL Albumin/Globulin Ratio 1.4 % Urine Bilirubin Neg (Negative) Urine RBC (Auto) 1.0 (0.0-6.0) /HPF U Epithel Cells (Auto) 1.0 (0-13.0) /HPF Vital Signs 11/07/19 11/08/19 23:25 02:02 Temperature 97.4 F L Pulse Rate 101 H Respiratory 16 15 Rate Blood Pressure 138/71 Blood Pressure 126/44 [Left] O2 Sat by Pulse 99 99 Oximetry Lab Results 11/08/19 11/08/19 11/08/19 Range/Units 00:30 01:09 01:09 WBC 5.8 (4.5-11.0) K/mm3 RBC 4.09 (3.65-5.03) M/mm3 Hgb 11.6 (10.1-14.3) gm/dl Hct 35.2 (30.3-42.9) % MCV 86 (79-97) fl MCH 29 (28-32) pg MCHC 33 (30-34) % RDW 14.7 (13.2-15.2) % Plt Count 226 (140-440) K/mm3 Sodium 142 (137-145) mmol/L Potassium 3.8 (3.6-5.0) mmol/L Chloride 101.7 (98-107) mmol/L Carbon Dioxide 29 (22-30) mmol/L Anion Gap 15 mmol/L BUN 10 (7-17) mg/dL Creatinine 0.7 (0.7-1.2) mg/dL Estimated GFR > 60 ml/min BUN/Creatinine Ratio 14 % Glucose 99 (65-100) mg/dL Calcium 9.2 (8.4-10.2) mg/dL Magnesium 2.00 (1.7-2.3) mg/dL Total Bilirubin 0.40 (0.1-1.2) mg/dL AST 23 (5-40) units/L ALT 20 (7-56) units/L Alkaline Phosphatase 95 (35-129) units/L Total Creatine Kinase 124 (30-135) units/L Total Protein 6.9 (6.3-8.2) g/dL Albumin 4.0 (3.9-5) g/dL Albumin/Globulin Ratio 1.4 % TSH (0.270-4.200) mlU/mL Urine Color Yellow (Yellow) Urine Turbidity Clear (Clear) Urine pH 5.0 (5.0-7.0) Ur Specific [place] 1.010 (1.003-1.030) Urine Protein <15 mg/dl (Negative) mg/dL Urine Glucose (UA) Neg (Negative) mg/dL Urine Ketones Neg (Negative) mg/dL Urine Blood Neg (Negative) Urine Nitrite Neg (Negative) Urine Bilirubin Neg (Negative) Urine Urobilinogen < 2.0 (<2.0) mg/dL Ur Leukocyte Esterase Tr (Negative) Urine WBC (Auto) 1.0 (0.0-6.0) /HPF Urine RBC (Auto) 1.0 (0.0-6.0) /HPF U Epithel Cells (Auto) 1.0 (0-13.0) /HPF Urine Mucus Few /HPF Salicylates (2.8-20.0) mg/dL Acetaminophen (10.0-30.0) ug/mL Plasma/Serum Alcohol (0-0.07) % 11/08/19 11/08/19 11/08/19 Range/Units 01:09 01:09 01:09 WBC (4.5-11.0) K/mm3 RBC (3.65-5.03) M/mm3 Hgb (10.1-14.3) gm/dl Hct (30.3-42.9) % MCV (79-97) fl MCH (28-32) pg MCHC (30-34) % RDW (13.2-15.2) % Plt Count (140-440) K/mm3 Sodium (137-145) mmol/L Potassium (3.6-5.0) mmol/L Chloride (98-107) mmol/L Carbon Dioxide (22-30) mmol/L Anion Gap mmol/L BUN (7-17) mg/dL Creatinine (0.7-1.2) mg/dL Estimated GFR ml/min BUN/Creatinine Ratio % Glucose (65-100) mg/dL Calcium (8.4-10.2) mg/dL Magnesium (1.7-2.3) mg/dL Total Bilirubin (0.1-1.2) mg/dL AST (5-40) units/L ALT (7-56) units/L Alkaline Phosphatase (35-129) units/L Total Creatine Kinase (30-135) units/L Total Protein (6.3-8.2) g/dL Albumin (3.9-5) g/dL Albumin/Globulin Ratio % TSH 3.840 (0.270-4.200) mlU/mL Urine Color (Yellow) Urine Turbidity (Clear) Urine pH (5.0-7.0) Ur Specific [place] (1.003-1.030) Urine Protein (Negative) mg/dL Urine Glucose (UA) (Negative) mg/dL Urine Ketones (Negative) mg/dL Urine Blood (Negative) Urine Nitrite (Negative) Urine Bilirubin (Negative) Urine Urobilinogen (<2.0) mg/dL Ur Leukocyte Esterase (Negative) Urine WBC (Auto) (0.0-6.0) /HPF Urine RBC (Auto) (0.0-6.0) /HPF U Epithel Cells (Auto) (0-13.0) /HPF Urine Mucus /HPF Salicylates < 0.3 L (2.8-20.0) mg/dL Acetaminophen < 5.0 L (10.0-30.0) ug/mL Plasma/Serum Alcohol (0-0.07) % / Range/Units 01:09 WBC (4.5-11.0) K/mm3 RBC (3.65-5.03) M/mm3 Hgb (10.1-14.3) gm/dl Hct (30.3-42.9) % MCV (79-97) fl MCH (28-32) pg MCHC (30-34) % RDW (13.2-15.2) % Plt Count (140-440) K/mm3 Sodium (137-145) mmol/L Potassium (3.6-5.0) mmol/L Chloride (98-107) mmol/L Carbon Dioxide (22-30) mmol/L Anion Gap mmol/L BUN (7-17) mg/dL Creatinine (0.7-1.2) mg/dL Estimated GFR ml/min BUN/Creatinine Ratio % Glucose (65-100) mg/dL Calcium (8.4-10.2) mg/dL Magnesium (1.7-2.3) mg/dL Total Bilirubin (0.1-1.2) mg/dL AST (5-40) units/L ALT (7-56) units/L Alkaline Phosphatase (35-129) units/L Total Creatine Kinase (30-135) units/L Total Protein (6.3-8.2) g/dL Albumin (3.9-5) g/dL Albumin/Globulin Ratio % TSH (0.270-4.200) mlU/mL Urine Color (Yellow) Urine Turbidity (Clear) Urine pH (5.0-7.0) Ur Specific [place] (1.003-1.030) Urine Protein (Negative) mg/dL Urine Glucose (UA) (Negative) mg/dL Urine Ketones (Negative) mg/dL Urine Blood (Negative) Urine Nitrite (Negative) Urine Bilirubin (Negative) Urine Urobilinogen (<2.0) mg/dL Ur Leukocyte Esterase (Negative) Urine WBC (Auto) (0.0-6.0) /HPF Urine RBC (Auto) (0.0-6.0) /HPF U Epithel Cells (Auto) (0-13.0) /HPF Urine Mucus /HPF Salicylates (2.8-20.0) mg/dL Acetaminophen (10.0-30.0) ug/mL Plasma/Serum Alcohol < 0.01 (0-0.07) % - EKG Data -: EKG Interpreted by [facility] EKG shows normal: sinus rhythm Rate: normal - EKG Data 11/08/19 01:44 The EKG today shows a sinus rhythm, 89 bpm, normal axis, QTC 460 ms, there is mo tion artifact, the EKG is not consistent with STEMI. - Medical Decision Making Differential diagnosis, including but not limited to: Dementia, sundowning, delusions, thyroid derangement, urinary tract infection, case management patient, homelessness, malingering Assessment and plan: 64-year-old female who is known to be homeless, did not recently list any next of kin, was discharged from this hospital for colitis, and apparently didn't go anywhere, or is not brought to the correct location, who presents with probable case management exacerbation issues. She is afebrile with reassuring vital signs with an unremarkable physical examination. She is not agitated, combative or violent, she is not homicidal or suicidal. She insists that she is 8 months . This seems to be somewhat irrational. Uncertain if the patient is malingering, demented, sundowning, or extrinsic secondary gain. Patient placed on hold, we have continue some of her recent medications, psychiatric consultation requested, case management consultation requested. Screening laboratory studies are reviewed at this time, and they're fairly unremarkable. At this point in time, patient medically suitable for disposition as arranged by case management psychiatry. She does not appear to have an objectively demonstrated emergent medical condition at this time. Even if it this is dementia, this is an outpatient workup. The patient at this moment does not meet criteria for hospitalization. Critical care attestation.: If time is entered above; I have spent that time in minutes in the direct care of this critically ill patient, excluding procedure time. ED Disposition Clinical Impression: Case management patient, Homelessness Disposition: DC-01 TO HOME OR SELFCARE Is pt being admited?: No Does the pt Need Aspirin: No Condition: Stable Referrals: GIN JANSEN MD [Primary Care Provider] - 3-5 Days
--- NOTE | 2019-11-08 00:42 | Cat Scan Report ---
CT HEAD WITHOUT CONTRAST INDICATION: dementia mental status changes. TECHNIQUE: All CT scans at this location are performed using CT dose reduction for ALARA by means of automated e xposure control. COMPARISON: None available. FINDINGS: HEMORRHAGE: None. EXTRA-AXIAL SPACES: Normal in size and morphology for the patient's age. VENTRICULAR SYSTEM: Normal in size and morphology for the patient's age. BRAIN PARENCHYMA: No acute findings. MIDLINE SHIFT OR HERNIATION: None. ORBITS: Normal as visualized. SOFT TISSUES OF HEAD: Normal. CALVARIUM: Normal. VISUALIZED PARANASAL SINUSES AND MASTOID AIR CELLS: Clear. ADDITIONAL FINDINGS: None. IMPRESSION: 1. No acute intracranial abnormality. Signer Name: Gary Nugent MD Signed: 11/08/2019 12:38 AM Workstation Name: [id number]
[2019-11-08 01:29] LABS: Hematocrit 35.2 % (30.3-42.9); Hemoglobin 11.6 gm/dl (10.1-14.3); Mean Corpuscular HGB Conc 33 % (30-34); Mean Corpuscular Volume 86 fl (79-97); Platelet Count 226 K/mm3 (140-440); Red Blood Count 4.09 M/mm3 (3.65-5.03); Red Cell Distribution Width 14.7 % (13.2-15.2)
[2019-11-08 01:33] LABS: Bilirubin,Urine NEG (Negative); Blood,Urine NEG (Negative); Color,Urine Yellow (Yellow); Mucus,Urine FEW /HPF; Protein,Urine <15 mg/dL mg/dL (Negative); Urobilinogen,Urine < 2.0 mg/dL (<2.0)
[2019-11-08 01:43] LABS: Alanine Aminotransferase 20 units/L (7-56); BUN/Creatinine Ratio 14; Blood Urea Nitrogen 10 mg/dL (7-17); Calcium 9.2 mg/dL (8.4-10.2); Hemolysis Index 8
[2019-11-08] MEDS ORDERED: BUDESONIDE 0.5 MG/2 ML NEBU IH SCH (08:00)
[2019-11-08] MEDS ORDERED: ARFORMOTEROL 15 MCG/2 ML NEBU IH SCH (08:00)
[2019-11-08] MEDS ORDERED: PANTOPRAZOLE 40 MG TAB PO SCH (10:00)
[2019-11-08] MEDS ORDERED: VERAPAMIL ER 240 MG TAB PO SCH (10:00)
[2019-11-08] MEDS ORDERED: NON-FORMULARY EACH (Budesonide/Formoterol Fumarate [Symbicort 160-4.5 Mcg Inhaler] 10.2 GM IH SCH (10:00)
[2019-11-08] MEDS ORDERED: FUROSEMIDE 40 MG TAB PO SCH (10:00)
[2019-11-08] MEDS ORDERED: levoFLOXacin 500 MG TAB PO SCH (10:00)
[2019-11-08] MEDS ORDERED: LISINOPRIL 40 MG TAB PO SCH (10:00)
[2019-11-08 10:22] VITALS: BP 134/82
== END 2019-11-08 10:22 | disposition home or self-care (01) ==
LOC: ED 22:25
DX: M54.9 Dorsalgia, unspecified (principal); G89.29 Other chronic pain; R41.0 Disorientation, unspecified; I10 Essential (primary) hypertension; J45.909 Unspecified asthma, uncomplicated; Z59.0 Homelessness
CPT/HCPCS: 36415; 70450; 80053; 80320; 81001; 82550; 83735; 84443; 85027; 93005; 93010; 99284; G0480